=== PATIENT | female | born 1980 ===

== ENCOUNTER 2018-02-06 01:01 | Emergency (ER) | payer SELFPAY ==
[~2018-02-06] VITALS: Ht 167.6 cm; Wt 78.2 kg
[2018-02-06 01:06] VITALS: BP 128/50
== END 2018-02-06 04:53 | disposition left against medical advice (07) ==
LOC: EMS 01:02
DX: Z53.21 Procedure and treatment not carried out due to patient leaving prior to being seen by health care provider (principal)